=== PATIENT | female | born 1960 | race Caucasian/White ===

== ENCOUNTER 2021-07-30 12:14 | Emergency (ER) | payer OTHER, SELFPAY ==
[2021-07-30 13:44] VITALS: BP 152/81; PULSE 64; RESP 18; TEMP 36.5; O2SAT 97
--- NOTE | 2021-07-30 14:11 | ED.URI ---
HPI - URI/Sore Throat General Chief Complaint: Upper Respiratory Infection Stated Complaint: Sinus,Chest Congestion Time Seen by Provider: 07/30/21 14:11 Source: patient and RN notes reviewed Mode of arrival: ambulatory Limitations: no limitations History of Present Illness HPI Narrative: Gretchen is a 61-year-old female patient ambulated into the [facility]. Patient had sinusitis and bronchitis in April that lasted until July 02. She was treated with doxycycline and prednisone for 10 days. On July 12 she developed she developed sinus congestion, cough, bilateral ear pain and chest congestion. She has been using her albuterol nebulizer at home. She has been using Mucinex, [place] cough syrup, Tylenol, and nasal wash twice daily. Patient has a long history of allergies and asthma. MD elicited complaint: cough Related Data Home Medications Medication Instructions Recorded Confirmed albuterol sulfate 2.5 mg INHALATION PRN PRN 07/30/21 07/30/21 albuterol sulfate 90 mcg INHALATION DAILY 07/30/21 07/30/21 lisinopril 20 mg PO DAILY 07/30/21 07/30/21 oxybutynin chloride 0 mg PO DAILY 07/30/21 07/30/21 Allergies Allergy/AdvReac Type Severity Reaction Status Date / Time Penicillins Allergy Intermediate Hives Verified 07/30/21 14:21 Review of Systems Review of Systems: CONSTITUTIONAL: Denies body aches, fever, chills, or sweats. EYES: Denies visual changes, redness, or discharge. ENT: Denies rhinorrhea, +congestion, sore throat, o+ bilateral otalgia. CARDIOVASCULAR: Denies chest pain, palpitations, or edema. RESPIRATORY: + cough or dyspnea. GASTROINTESTINAL: Denies abdominal pain, nausea, vomiting, or diarrhea. GENITOURINARY: Denies dysuria or hematuria. SKIN: Denies rash, itching, or wounds. MUSCULOSKELETAL: Denies back pain, joint pain, or myalgia. NEUROLOGIC: Denies headache, numbness, tingling, or weakness. PSYCH: Denies depression or anxiety. All systems reviewed & are unremarkable except as noted in HPI and below PMFSH Family History Family History Mother Family history of diabetes mellitus in first degree relative Father Acute myocardial infarction Other Diabetes mellitus Family history of alcoholism Family history of cardiovascular disease Hypertension Social History Social History Smoking status: Never smoker Alcohol intake: current Comments At time of signature, I have reviewed and agree with nursing past medical, surgical, social and family history unless otherwise noted. Please see nursing chart for further information. There is no relevant family history pertinent to the presenting complaint Exam Narrative: GENERAL: Well-appearing, well-nourished, and in no acute distress. HEAD: Normocephalic, atraumatic. EYES: EOMI. No redness or drainage. Conjunctivae normal. ENT: Mucous membranes pink and moist. Nasal membranes are pale, bilateral tympanic membranes are with moderate bulging. Posterior pharynx is erythemic with moderate amount of clear nasal drainage.. Uvula midline. NECK: Normal AROM. Supple. Bilateral anterior cervical lymphadenopathy. CHEST: No respiratory distress. Clear to auscultation. Harsh hacking cough noted HEART: Regular rate and rhythm. No murmur appreciated. Normal peripheral pulses. MUSCULOSKELETAL: No bony tenderness. EXTREMITIES: Normal range of motion. No edema. SKIN: Warm, dry, no rash. Capillary refill normal. Normal skin turgor. NEURO: No focal deficits. Alert and oriented x3. Gait steady. PSYCH: Normal affect. No signs of depression or anxiety. Course Vital Signs Vital signs: Vital Signs Temperature 36.5 C 07/30/21 13:44 Pulse Rate 64 07/30/21 13:44 Respiratory Rate 18 07/30/21 13:44 Blood Pressure 152/81 H 07/30/21 13:44 Pulse Oximetry 97 07/30/21 13:44 Temperature 36.5 C 07/30/21 13:44 Pulse Rate 64
== END 2021-07-30 14:46 | disposition home or self-care (01) ==
PROVIDERS: Emergency Provider Nurse Practitioner Family; PCP Internal Medicine Geriatric Medicine
DX: J40 Bronchitis, not specified as acute or chronic (principal); J01.01 Acute recurrent maxillary sinusitis; I10 Essential (primary) hypertension; J45.909 Unspecified asthma, uncomplicated
CPT/HCPCS: 99213; G0463

== ENCOUNTER 2023-11-11 12:31 | Emergency (ER) | payer OTHER, SELFPAY ==
--- NOTE | 2023-11-11 12:33 | ED.URI ---
HPI - URI/Sore Throat General Chief Complaint: Upper Respiratory Infection Stated Complaint: RUNNY NOSE/HEADACHE/EARACHE Time Seen by Provider: 11/11/23 12:48 Source: patient and RN notes reviewed Mode of arrival: ambulatory Limitations: no limitations History of Present Illness HPI Narrative: 63-year-old female presents with concern for cough, sinus pressure, headache, sinus pain, ear pressure, pain behind her eyes for 1 week. She reports she has taken [id number] medications without relief. She reports she has Del some at home that she has not tried yet. MD elicited complaint: sore throat Related Data Home Medications Medication Instructions Recorded Confirmed albuterol sulfate 2.5 mg/3 mL 2.5 mg inhalation PRN PRN 07/30/21 11/11/23 (0.083 %) solution for nebulization Shortness Of Breath Or Wheezing albuterol sulfate 90 mcg/actuation 90 mcg inhalation DAILY 07/30/21 11/11/23 aerosol inhaler lisinopril 20 mg tablet 20 mg PO DAILY 07/30/21 11/11/23 oxybutynin chloride 10 mg 0 mg PO DAILY 07/30/21 11/11/23 tablet,extended release 24 hr fluticasone 500 mcg-salmeterol 50 1 inh inhalation DIRECTED 11/11/23 11/11/23 mcg/dose blistr powdr for inhalation (Advair Diskus) fluticasone propionate 50 50 mcg intranasal DIRECTED 11/11/23 11/11/23 mcg/actuation nasal spray,suspension gabapentin 100 mg capsule 100 mg PO DIRECTED 11/11/23 11/11/23 montelukast 10 mg tablet 10 mg PO DAILY 11/11/23 11/11/23 potassium chloride 10 mEq 10 meq PO DAILY 11/11/23 11/11/23 tablet,extended release semaglutide (weight loss) 2.4 2.4 mg subcut WEEKLY 11/11/23 11/11/23 mg/0.75 mL subcutaneous pen injector (Fay) Allergies Allergy/AdvReac Type Severity Reaction Status Date / Time Penicillins Allergy Intermediate Hives Verified 11/11/23 12:44 Review of Systems Review of Systems: CONSTITUTIONAL: Reports malaise, chills, sweats EYES: Denies visual changes, redness, or discharge. ENT: Reports rhinorrhea, congestion, sinus pain, otalgia CARDIOVASCULAR: Denies chest pain, palpitations, or edema. RESPIRATORY: Reports cough. Denies dyspnea. GASTROINTESTINAL: Denies abdominal pain, nausea, vomiting, diarrhea SKIN: Denies rash or itching. MUSCULOSKELETAL: Reports myalgia. NEUROLOGIC: Reports headache. 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 YESENIA (obstructive sleep apnea) Surgical History Surgical History (Updated 11/05/21 @ 09:11 by Nereida Yin) H/O foot surgery H/O: hysterectomy History of appendectomy History of hand surgery Right ulnar nerve and CTR Family History Family History (Updated 11/05/21 @ 09:12 by Nereida Yin) Mother Family history of diabetes mellitus in first degree relative Father Acute myocardial infarction Other Cerebrovascular accident Depression Diabetes mellitus Family history of alcoholism Family history of cardiovascular disease Heart disease Hypertension Social History Social History (Updated 11/05/21 @ 09:12 by Nereida Yin) Smoking status: Never smoker Alcohol intake: current Substance use: never Substance use type: does not use Occupation/Education: occupation 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 There is no relevant family history pertinent to the presenting complaint Exam Narrative: GENERAL: Nontoxic-appearing, well-nourished, and in no acute distress. HEAD: Normocephalic EYES: PERRLA, conjunctivae clear ENT: Nares clear, turbinates edematous and
[2023-11-11 12:41] VITALS: BP 119/88; PULSE 105; RESP 16; TEMP 36.6; O2SAT 98
[2023-11-11 12:48] VITALS: BP 119/88; PULSE 105; RESP 16; TEMP 36.6; O2SAT 98
== END 2023-11-11 13:02 | disposition home or self-care (01) ==
PROVIDERS: Emergency Provider Nurse Practitioner; PCP Internal Medicine Geriatric Medicine
DX: J06.9 Acute upper respiratory infection, unspecified (principal); R05.1 Acute cough; J45.909 Unspecified asthma, uncomplicated; I10 Essential (primary) hypertension
CPT/HCPCS: 99213; G0463

== ENCOUNTER 2023-12-02 13:19 | Emergency (ER) | payer OTHER, SELFPAY ==
--- NOTE | 2023-12-02 13:20 | ED.URI ---
HPI - URI/Sore Throat General Chief Complaint: Upper Respiratory Infection Stated Complaint: SINUS/COUGH Time Seen by Provider: 12/02/23 13:36 Source: patient and RN notes reviewed Mode of arrival: ambulatory Limitations: no limitations History of Present Illness HPI Narrative: 63-year-old female presents with concern of for prolonged cough, nasal congestion, sinus pain. Reports she was treated with doxycycline and prednisone in October, reports her symptoms did not fully improve and now they worsened over the last 3 days. She reports persistent cough, she has used her albuterol inhaler without relief. MD elicited complaint: cough and sinus pain Related Data Home Medications Medication Instructions Recorded Confirmed albuterol sulfate 90 mcg/actuation 90 mcg inhalation DAILY 07/30/21 12/02/23 aerosol inhaler lisinopril 20 mg tablet 20 mg PO DAILY 07/30/21 12/02/23 oxybutynin chloride 10 mg 10 mg PO DAILY 07/30/21 12/02/23 tablet,extended release 24 hr fluticasone 500 mcg-salmeterol 50 1 inh inhalation DIRECTED 11/11/23 12/02/23 mcg/dose blistr powdr for inhalation (Advair Diskus) fluticasone propionate 50 50 mcg intranasal DIRECTED 11/11/23 12/02/23 mcg/actuation nasal spray,suspension gabapentin 100 mg capsule 100 mg PO DIRECTED 11/11/23 12/02/23 montelukast 10 mg tablet 10 mg PO DAILY 11/11/23 12/02/23 potassium chloride 10 mEq 10 meq PO DAILY 11/11/23 12/02/23 tablet,extended release semaglutide (weight loss) 2.4 2.4 mg subcut WEEKLY 11/11/23 12/02/23 mg/0.75 mL subcutaneous pen injector (Wegovy) Allergies Allergy/AdvReac Type Severity Reaction Status Date / Time Penicillins Allergy Intermediate Hives Verified 12/02/23 13:27 Review of Systems Review of Systems: CONSTITUTIONAL: Denies malaise, chills, sweats, or fever. EYES: Denies visual changes, redness, or discharge. ENT: Reports rhinorrhea, congestion, sinus pain CARDIOVASCULAR: Denies chest pain, palpitations, or edema. RESPIRATORY: Reports persistent cough, episodic dyspnea. GASTROINTESTINAL: Denies abdominal pain, nausea, vomiting, diarrhea SKIN: Denies rash or itching. MUSCULOSKELETAL: Denies myalgia. NEUROLOGIC: Denies headache. 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 YESENIA (obstructive sleep apnea) Surgical History Surgical History (Updated 11/05/21 @ 09:11 by Nereida Yin) H/O foot surgery H/O: hysterectomy History of appendectomy History of hand surgery Right ulnar nerve and CTR Family History Family History (Updated 11/05/21 @ 09:12 by Nereida Yin) Mother Family history of diabetes mellitus in first degree relative Father Acute myocardial infarction Other Cerebrovascular accident Depression Diabetes mellitus Family history of alcoholism Family history of cardiovascular disease Heart disease Hypertension Social History Social History (Updated 11/05/21 @ 09:12 by Nereida Yin) Smoking status: Never smoker Alcohol intake: current Substance use: never Substance use type: does not use Occupation/Education: occupation 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 There is no relevant family history pertinent to the presenting complaint Exam Narrative: GENERAL: Well-appearing, well-nourished, and in no acute distress. HEAD: Normocephalic EYES: PERRLA, conjunctivae clear ENT: Nares clear. Mucous membranes moist. TM pearly ordoñez with dull light reflex bilaterally; no tragal tenderness. Oropharynx not erythe
[2023-12-02 13:31] VITALS: BP 144/88; PULSE 98; RESP 16; TEMP 36.6; O2SAT 99
== END 2023-12-02 13:49 | disposition home or self-care (01) ==
PROVIDERS: Emergency Provider Nurse Practitioner; PCP Internal Medicine Geriatric Medicine
DX: J32.9 Chronic sinusitis, unspecified (principal); J40 Bronchitis, not specified as acute or chronic; J45.909 Unspecified asthma, uncomplicated; I10 Essential (primary) hypertension
CPT/HCPCS: 99213; G0463